=== PATIENT | female | born 1950 | race Caucasian/White ===

== ENCOUNTER 2024-04-16 00:29 | Day surgery (SDC) | payer MEDICARE, OTHER, SELFPAY ==
[2024-04-06 15:45] VITALS: BMI 53.2
--- NOTE | 2024-04-08 14:37 | PC.NURSE ---
Spoke with patient regarding medication warfarin. Pt. verbalizes understanding that the last dose of warfarin is to be taken on 04/10/2024 and the Endoscopist will instruct them when to restart after the procedure.
[2024-04-16 09:27] VITALS: BP 159/86; PULSE 58; RESP 16; TEMP 36.2; O2SAT 98; BMI 54.4
--- NOTE | 2024-04-16 09:27 | PM.IMHP ---
H&P: HPI History of Present Illness Date/Time: 04/16/24 09:27 Chief Complaint: history of colorectal cancer Narrative: this patient had colorectal cancer diagnosed in 2010, status post right hemicolectomy. She has been following periodic surveillance colonoscopies, the last one 5 years ago. She is asymptomatic from the GI standpoint, denies abdominal pain, rectal bleeding or unintentional weight loss. Review of Systems Review of Systems: All systems reviewed & are unremarkable except as noted in HPI and below PMFSH Past Medical History Medical History (Updated 03/09/24 @ 15:46 by John Gonzales MD) Anxiety Asthma Chronic kidney disease History of hypertension Hyperlipidemia Hypothyroidism Prediabetes Sleep apnea Tonsillectomy planned Surgical History Surgical History (Updated 03/09/24 @ 08:22 by Rose Reyez CMA) H/O eye surgery H/O hernia repair Family History Family History (Updated 03/09/24 @ 08:22 by Rose Reyez CMA) Father Depression Heart disease Mother Depression Diabetes mellitus Heart disease Hypertension Social History Social History (Updated 03/09/24 @ 15:09 by Rose Reyez CMA) Smoking status: Never smoker Alcohol intake: current Substance use: never Substance use type: does not use Living arrangements: with family Spiritual care concerns: No Meds Home Medications and Allergies Home Medications Medication Instructions Recorded Confirmed Type albuterol sulfate 90 mcg/actuation 1 puff inhalation Q4H PRN 03/09/24 04/16/24 History aerosol inhaler Shortness Of Breath allopurinol 300 mg tablet 300 mg PO DAILY 03/09/24 04/16/24 History calcitriol 0.25 mcg capsule 0.25 mcg PO TID 03/09/24 04/16/24 History citalopram 20 mg tablet 20 mg PO DAILY 03/09/24 04/16/24 History ergocalciferol (vitamin D2) 1,250 1,250 mcg PO WEEKLY 03/09/24 04/16/24 History mcg (50,000 unit) capsule levothyroxine 25 mcg capsule 25 mcg PO DAILY 03/09/24 04/16/24 History losartan 50 mg tablet 50 mg PO DAILY 03/09/24 04/16/24 History pravastatin 40 mg tablet 40 mg PO DAILY 03/09/24 04/16/24 History warfarin 2 mg tablet 2 mg PO DAILY 03/09/24 04/16/24 History warfarin 3 mg tablet 3 mg PO DAILY 03/09/24 04/16/24 History acetaminophen 500 mg tablet 1,000 mg PO Q6H PRN Pain 04/06/24 04/16/24 History (Tylenol Extra Strength) artificial tears(hypromellose) 0.3 2 drp EACH EYE BID PRN Dry Eyes 04/06/24 04/16/24 History % eye gel (Systane Gel) fexofenadine 180 mg tablet 180 mg PO DAILY 04/06/24 04/16/24 History furosemide 40 mg tablet 40 mg PO BID 04/06/24 04/16/24 History magnesium oxide 400 mg PO QMWF 04/06/24 04/16/24 History melatonin 10 mg tablet 10 mg PO HS PRN Insomnia 04/06/24 04/16/24 History omeprazole magnesium 20 mg 20 mg PO DAILY 04/06/24 04/16/24 History tablet,delayed release (Prilosec OTC) potassium chloride 20 mEq 20 meq PO DAILY 04/06/24 04/16/24 History tablet,extended release theophylline 400 mg 200 mg PO BID 04/06/24 04/16/24 History tablet,extended release 24 hr Allergies Allergy/AdvReac Type Severity Reaction Status Date / Time Clindamycin Allergy Severe Hives Uncoded 04/16/24 09:22 Vancomycin Allergy Severe Hives Uncoded 04/16/24 09:22 Exam Const: General: cooperative and healthy appearing Resp: Effort & Inspection: normal respiratory effort and able to speak in complete sentences Auscultation: clear to auscultation bilaterally Cardio: Rate: regular rate Rhythm: regular rhythm GI: Inspection: normal to inspection GI Palp: No No hepatosplenomegaly present Auscultation: normal bowel sounds Rectal Exam: deferred Skin: General skin exam: normal color Psych: Appearance: grossly normal Mental Status: mental status grossly normal Assessment and Plan Assessment and plan (1) History of colon cancer: Code(s): Z85.038 - Personal history of other malignant neoplasm of large intestine Status: Acute
[2024-04-16] MEDS: LACTATED RINGERS 1,000 ML 150 ML IV CONT (09:39)
[2024-04-16 12:08] VITALS: BP 131/57; PULSE 69; RESP 22; O2SAT 98
[2024-04-16 12:18] VITALS: BP 129/70; PULSE 66; RESP 17; O2SAT 100
[2024-04-16 12:28] VITALS: BP 152/68; PULSE 65; RESP 15; O2SAT 100
== END 2024-04-16 12:51 | disposition home or self-care (01) ==
PROVIDERS: PCP Internal Medicine; Visit Provider Internal Medicine Gastroenterology
PROC: 0DJD8ZZ Inspection of Lower Intestinal Tract, Via Natural or Artificial Opening Endoscopic (ICD-10-PCS; CPT 45378; principal; 2024-04-16 10:00)
DX: Z08 Encounter for follow-up examination after completed treatment for malignant neoplasm (principal); D12.3 Benign neoplasm of transverse colon; K57.30 Diverticulosis of large intestine without perforation or abscess without bleeding; Z98.0 Intestinal bypass and anastomosis status; Z90.49 Acquired absence of other specified parts of digestive tract; Z85.038 Personal history of other malignant neoplasm of large intestine; I12.9 Hypertensive chronic kidney disease with stage 1 through stage 4 chronic kidney disease, or unspecified chronic kidney disease; N18.9 Chronic kidney disease, unspecified; E78.5 Hyperlipidemia, unspecified; E03.9 Hypothyroidism, unspecified; J45.909 Unspecified asthma, uncomplicated; G47.30 Sleep apnea, unspecified; F41.9 Anxiety disorder, unspecified; Z79.51 Long term (current) use of inhaled steroids; Z79.01 Long term (current) use of anticoagulants
CPT/HCPCS: 45385; 88305; J2704; J7120